=== PATIENT | male | born 1950 | race Caucasian/White ===

== ENCOUNTER 2016-12-06 08:48 | Day surgery (SDC) | payer MEDICARE, OTHER ==
[2016-12-06] MEDS ORDERED: LACTATED RINGERS 1,000 ML ONE (08:58)
[2016-12-06] MEDS ORDERED: IV START KIT ONE (08:58)
[2016-12-06] MEDS ORDERED: FENTANYL 100 MCG/2 ML VIAL ONE (10:04)
[2016-12-06] MEDS ORDERED: LIDOCAINE Viscous 2% 15 ML UDCUP ONE (10:04)
[2016-12-06] MEDS ORDERED: PROPOFOL 20 ML IV ONE ×2 (10:06→11:17)
[2016-12-06] MEDS ORDERED: LACTATED RINGERS 1,000 ML IV SCH (11:30)
[2016-12-06 15:27] LABS: HELICOBACTER PYLORII DETECTION NEGATIVE (NEGATIVE)
--- NOTE | 2016-12-08 14:02 | SURGPATH ---
[facility] [address] [place] [id number] Patient Name: PABLITO BURRIS MR#: [id number] : 1950 Gender: M Specimen #: [id number] Collected: 12/06/2016 Received: 12/07/2016 Reported: 12/08/2016 Submitting Phys: DIANA JAVIER Copy To Phys: [facility] DEBRA BARGER Clinical History / Pre-Operative Diagnosis: SCREENING; BLOOD IN STOOL; DIVERTICULOSIS; POLYP OF THE LARGE INTESTINE Specimen Source / Surgical Procedure Performed: #1-antrum biopsy; #2-esophageal biopsy at 20 cm; #3-polyp near ileocecal valve; #4-cecal polyp Interpretation: 1. GASTRIC ANTRUM, BIOPSY: - MILD REACTIVE GASTROPATHY. - NO MICROORGANISMS IDENTIFIED WITH ROUTINE STAINING. - NO EVIDENCE OF SIGNIFICANT INFLAMMATION, INTESTINAL METAPLASIA, OR MALIGNANCY. 2. ESOPHAGUS, 20 CM, BIOPSY: - SQUAMOUS MUCOSA WITH ASSOCIATED GLANDULAR MUCOSA SHOWING NO DIAGNOSTIC ABNORMALITIES. - NO EVIDENCE OF SIGNIFICANT INFLAMMATION, INTESTINAL METAPLASIA, OR MALIGNANCY. 3. COLON, NEAR ILEOCECAL VALVE, BIOPSY: - FOUR FRAGMENTS OF TUBULAR ADENOMAS. - NO EVIDENCE OF MALIGNANCY. 4. CECUM, BIOPSY: - TWO FRAGMENTS OF TUBULAR ADENOMAS. - NO EVIDENCE OF MALIGNANCY. Electronically Signed Out Graham Hernandez M.D., Ph.D. Gross Description: #1 The specimen is received in a formalin filled container labeled with the patient's name and "antrum biopsy". An irregular muse biopsy is 0.5 cm. Totally embedded in cassette #1. #2 The specimen is received in a formalin filled container labeled with the patient's name and "esophageal biopsy at 20 cm". Two meier biopsies are each 0.4 cm. Totally embedded in cassette #2. #3 The specimen is received in a formalin filled container labeled with the patient's name and "polyp near ileocecal valve". Four muse biopsies are 0.2-0.3 cm. Totally embedded in cassette #3. #4 The specimen is received in a formalin filled container labeled with the patient's name and "cecal polyp". Two muse biopsies are 0.2 and 0.5 cm. Totally embedded in cassette #4. Sameer Sevilla, P.A. Microscopic Description: 1. Examination of multiple levels from the gastric antrum biopsy shows two fragments of gastric mucosa with superficial smooth muscle proliferation associated with tortuous glands. The lamina propria is otherwise not expanded. No microorganisms are identified with routine staining. There is no evidence of significant inflammation, intestinal metaplasia, or malignancy. 2. Examination of multiple levels from esophagus biopsy at 20 cm shows histologically unremarkable squamous mucosa with associated glandular mucosa. There is no evidence of significant inflammation, intestinal metaplasia, or malignancy. 3. Examination of the levels from the colon biopsy near the ileocecal valve shows four fragments of colonic mucosa with adenomatous changes within glands and tubules. There is no evidence of malignancy. 4. Examination of multiple levels from the cecum biopsy shows two fragments of colonic mucosa with adenomatous changes within glands and tubules. There is no evidence of malignancy. 1: 82961 2: 40125 3: 89525 4: 74111 K31.9 D12.0
== END 2016-12-06 11:50 | disposition home or self-care (01) ==
LOC: SDC 08:48
PROVIDERS: ATTEND Surgery
PROC: 0DBC8ZX Excision of Ileocecal Valve, Via Natural or Artificial Opening Endoscopic, Diagnostic (ICD-10-PCS; principal; 2016-12-06)
PROC: 0DBH8ZX Excision of Cecum, Via Natural or Artificial Opening Endoscopic, Diagnostic (ICD-10-PCS; principal; 2016-12-06)
PROC: 0DB68ZX Excision of Stomach, Via Natural or Artificial Opening Endoscopic, Diagnostic (ICD-10-PCS; principal; 2016-12-06)
PROC: 0DB18ZX Excision of Upper Esophagus, Via Natural or Artificial Opening Endoscopic, Diagnostic (ICD-10-PCS; principal; 2016-12-06)
DX: K31.9 Disease of stomach and duodenum, unspecified (principal); D12.0 Benign neoplasm of cecum; K57.30 Diverticulosis of large intestine without perforation or abscess without bleeding; K29.70 Gastritis, unspecified, without bleeding